=== PATIENT | female | born 1990 | race Caucasian/White ===

== ENCOUNTER 2021-02-28 05:22 | Emergency (ER) | payer OTHER ==
[2021-02-28] MEDS ORDERED: ROBAXIN500 MG PO (06:44)
== END 2021-02-28 07:36 | disposition home or self-care (01) ==
LOC: FER 05:22
DX: S40.012A Contusion of left shoulder, initial encounter (principal); H57.89 Other specified disorders of eye and adnexa; M25.561 Pain in right knee; M25.522 Pain in left elbow; V40.5XXA Car driver injured in collision with pedestrian or animal in traffic accident, initial encounter; Y92.410 Unspecified street and highway as the place of occurrence of the external cause
CPT/HCPCS: 71045; 73030; 73080